=== PATIENT | male | born 1975 | race Caucasian/White ===

== ENCOUNTER 2020-08-27 10:09 | Observation (INO) | payer MEDICARE, OTHER, MEDICAID ==
[~2020-08-27] VITALS: Ht 182.9 cm; Wt 107.0 kg
[~2020-08-27 10:09] MED LIST: ASA81BEC PO; CALCIUM ACETAT667 MG PO; CARVEDILOL25 MG PO; DEMADEX20 MG PO; HUMALOG KW100 UNIT/1 SUBQ; IRON325 PO; LANTUS SOL100 UNIT/1 SUBQ; TAMSULOSIN HCL0.4 MG PO; VITAMIN D350 MCG PO
[2020-08-27 10:39] LABS: HEMATOCRIT 36.3 % (42.0-52.0); HEMOGLOBIN 12.2 gm/dL (14.0-18.0); MCH 31.3 pg (26.0-34.0); MCHC 33.7 g/dL (28.0-37.0); MCV 92.8 fL (80.0-100.0); MPV 6.5 fl. (7.2-11.1); RBC 3.91 mil/uL (4.50-6.00); RDW-CV 13.4 % (10.5-14.5); WBC 7.4 thou/uL (4.0-11.0)
[2020-08-27 10:44] LABS: CALCIUM 8.8 mg/dL (8.5-10.1); CREATININE 4.1 mg/dL (0.6-1.3); POTASSIUM 4.3 mmol/L (3.5-5.1)
[2020-08-27] MEDS ORDERED: LORCET 5-325 M1 EACH PO (15:54)
[2020-08-27 17:00] VITALS: BP 147/68
--- NOTE | 2020-08-27 17:13 | EKG ---
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: MARY : 1975 Requested By: iGrish Reyes Order Number: [id number] Reading MD: Quinton Madden Measurements Intervals [place] Rate: 71 P: 42 LA: 163 QRS: 26 QRSD: 110 T: 181 QT: 420 QTc: 457 Interpretive Statements Sinus rhythm Abnormal T, consider ischemia, diffuse leads ST elevation, consider anterior injury No previous ECG available for comparison Electronically Signed On 08-27-2020 17:12:50 CDT by Quinton Madden [email or web address] <ELECTRONICALLY SIGNED> By: Lorie Madden MD, [facility] 08/27/20 1712 1127 1127 FAjay Madden MD, [facility]ENTER[facility] /EPI
[2020-08-27 20:15] VITALS: BP 152/76
[2020-08-28 08:10] VITALS: BP 151/76
[2020-08-28 08:47] VITALS: BP 151/76
== END 2020-08-28 14:40 | disposition home or self-care (01) ==
LOC: M.SUR 10:09 → M.TBA 16:29 → M.ORTHSURG 16:50
PROVIDERS: Surgery Vascular Surgery; ADMIT Internal Medicine; ATTEND Internal Medicine
DX: J96.01 Acute respiratory failure with hypoxia (principal); E11.22 Type 2 diabetes mellitus with diabetic chronic kidney disease; N18.6 End stage renal disease; I25.10 Atherosclerotic heart disease of native coronary artery without angina pectoris; M25.775 Osteophyte, left foot; R11.2 Nausea with vomiting, unspecified; I13.0 Hypertensive heart and chronic kidney disease with heart failure and stage 1 through stage 4 chronic kidney disease, or unspecified chronic kidney disease; I50.9 Heart failure, unspecified; F17.210 Nicotine dependence, cigarettes, uncomplicated; Z79.4 Long term (current) use of insulin; Z79.899 Other long term (current) drug therapy